=== PATIENT | male | born 1980 | race Caucasian/White ===

== ENCOUNTER 2024-10-16 09:24 | Emergency (ER) | payer MEDICAID ==
[~2024-10-16] VITALS: Ht 172.7 cm; Wt 85.0 kg
[2024-10-16 09:28] VITALS: TEMP 98.6
[2024-10-16 10:07] LABS: BASOPHILS % (AUTO) 0.5 % (0.0-2.0); EOSINOPHILS % (AUTO) 3.3 % (1.0-6.0); HEMATOCRIT 47.8 % (41-53); HEMOGLOBIN 16.7 g/dL (13.5-17.5); LYMPHOCYTES # (AUTO) 1.8 K/uL (1.0-4.8); LYMPHOCYTES % (AUTO) 36.1 % (22.0-44.0); MEAN CORPUSCULAR HEMOGLOBIN 32.8 pg (26.0-34.0); MEAN CORPUSCULAR HGB CONC 34.9 G/dL (31.0-37.0); MEAN CORPUSCULAR VOLUME 94 fL (80-100); MONOCYTES # (AUTO) 0.4 K/uL (0.1-1.0); MONOCYTES % (AUTO) 7.1 % (2.0-9.0); NEUTROPHILS # (AUTO) 2.7 K/uL (1.8-7.7); PLATELET COUNT (AUTO) 212 K/uL (150-450); RED BLOOD CELL COUNT(AUTO) 5.08 MIL/uL (4.50-5.90); RED CELL DISTRIBUTION WIDTH 12.3 % (11.5-14.5); WHITE BLOOD COUNT (AUTO) 5.1 K/uL (4.5-11.0)
[2024-10-16 10:11] LABS: ANION GAP 8 mmol/L (8-16); CALCIUM, TOTAL 8.9 mg/dL (8.8-10.5); CARBON DIOXIDE 27 mmol/L (22-29); CHLORIDE 108 mmol/L (98-107); CREATININE 0.91 mg/dL (0.60-1.30); GLOMERULAR FILTR. RATE CALC > 60 mL/min (>60); GLUCOSE,RANDOM 106 mg/dL (70-110); SODIUM SERUM 143 mmol/L (136-145); UREA NITROGEN, BLOOD 13 mg/dL (7-18)
[2024-10-16] MEDS: SODIUM CHLORIDE 0.9% 2,550 ML IV ONE (10:20)
[2024-10-16 10:23] LABS: LIPASE 69 U/L (16-77)
[2024-10-16 10:45] LABS: COVID AG,FIA SOURCE NASAL SWAB
[2024-10-16 11:05] LABS: INFLUENZA TYPE A NEGATIVE FOR TYPE A (NEGATIVE); INFLUENZA TYPE B NEGATIVE FOR TYPE B (NEGATIVE); SARS-COV2 (COVID) ANTIGEN,FIA Negative (Negative)
[2024-10-16] MEDS: MAG HYDROX/ALUMINUM HYD/SIMETH ES 30 ML SUSPENSION UDCUP PO ONE (11:10)
[2024-10-16] MEDS: FAMOTIDINE 20 MG/2 ML VIAL IVP ONE (11:11)
[2024-10-16 12:31] LABS: APPEARANCE,URINE CLEAR (CLEAR); BILIRUBIN,URINE NEGATIVE (NEGATIVE); COLOR,URINE COLORLESS (YELLOW); GLUCOSE, URINE (UA) NEGATIVE (NEGATIVE); KETONES,URINE TRACE mg/dL (NEGATIVE); LEUKOCYTE ESTERASE ,URINE NEGATIVE (NEGATIVE); NITRATE,URINE NEGATIVE (NEGATIVE); OCCULT BLOOD,URINE NEGATIVE (NEGATIVE); PROTEIN,URINE NEGATIVE (NEGATIVE); SPECIFIC GRAVITIY, URINE 1.011 (1.003-1.030); UROBILINOGEN,URINE <=1.0 mg/dL (<=1.0)
[2024-10-16 12:41] LABS: BACTERIA,URINE None Seen /HPF (None Seen); RBC,URINE None Seen /HPF (0-2); SQUAMOUS EPITHELIAL CELL,UR None Seen /LPF (None Seen); WBC,URINE None Seen /HPF (0-5)
[2024-10-16 14:19] VITALS: BP 112/72; PULSE 64; RESP 18; O2SAT 99
== END 2024-10-16 14:20 | disposition home or self-care (01) ==
LOC: EMS 09:28
DX: R10.13 Epigastric pain (principal); Z20.822 Contact with and (suspected) exposure to COVID-19
CPT/HCPCS: 99285; 96374; 96361; 71045; 87426; 80048; 81001; 83690; 85025; 87804; 36415; 93005; J3490; J7030

== ENCOUNTER 2024-10-25 13:42 | Emergency (ER) | payer MEDICAID ==
[~2024-10-25] VITALS: Ht 162.6 cm; Wt 63.6 kg
[2024-10-25 13:44] VITALS: BP 127/60; PULSE 70; RESP 18; TEMP 99.3; O2SAT 97
[2024-10-25 13:53] LABS: COVID AG,FIA SOURCE NASAL SWAB
[2024-10-25 14:07] LABS: RAPID GROUP A STREP NEGATIVE (NEGATIVE)
[2024-10-25 14:13] LABS: INFLUENZA TYPE A NEGATIVE FOR TYPE A (NEGATIVE); INFLUENZA TYPE B NEGATIVE FOR TYPE B (NEGATIVE)
[2024-10-25 14:14] LABS: SARS-COV2 (COVID) ANTIGEN,FIA Negative (Negative)
[2024-10-25] MEDS: ACETAMINOPHEN 325 MG TABLET PO ONE (16:55)
[2024-10-25] MEDS: BENZONATATE 100 MG CAPSULE PO ONE (16:55)
[2024-10-25] MEDS ORDERED: ACET-2247 PO (17:14)
[2024-10-25] MEDS ORDERED: IBUP-1492 PO (17:14)
[2024-10-25] MEDS ORDERED: BENZ-227 PO (17:14)
== END 2024-10-25 17:34 | disposition home or self-care (01) ==
LOC: EMS 13:43
DX: B34.9 Viral infection, unspecified (principal); R05.9 Cough, unspecified; Z20.822 Contact with and (suspected) exposure to COVID-19
CPT/HCPCS: 87430; 87804; 99283